=== PATIENT | male | born 1995 | race Caucasian/White ===

== ENCOUNTER 2017-10-17 13:58 | Emergency (ER) | payer OTHER ==
[~2017-10-17] VITALS: Ht 170.2 cm; Wt 127.3 kg
[~2017-10-17 13:58] MED LIST: AMOX250C4 PO; IBUP-2070 PO
[2017-10-17 14:48] VITALS: BP 151/77
== END 2017-10-17 15:11 | disposition home or self-care (01) ==
LOC: EMS 14:00
DX: J40 Bronchitis, not specified as acute or chronic (principal); R03.0 Elevated blood-pressure reading, without diagnosis of hypertension
CPT/HCPCS: 71020; 99284